=== PATIENT | female | born 1985 | race African-American/Black ===

== ENCOUNTER 2019-10-29 15:10 | Emergency (ER) | payer MEDICAID ==
[~2019-10-29] VITALS: Ht 167.6 cm; Wt 116.6 kg
--- NOTE | 2019-10-29 15:10 | NUR ---
PT BIBRA 89 FROM HOME C/O R THUMB LACERATION. PT IS AAOX4, NOT IN RESPIRATORY DISTRESS, V/S STABLE, KEPT RESTED AND COMFORTABLE. WILL CONTINUE TO MONITOR.
[2019-10-29] MEDS ORDERED: TDAP [DIPH/PERTUSSIS/TET] 0.5 ML VIAL IM ONE ×2 (15:56→16:00)
--- NOTE | 2019-10-29 16:00 | NUR ---
FISH NET MAKER AT BEDSIDE FOR XRAY.
--- NOTE | 2019-10-29 16:45 | NUR ---
SUTURING DONE BY .
--- NOTE | 2019-10-29 16:53 | NUR ---
WOUND DRESSING DONE BY CLICKER OPERATOR.
[2019-10-29 16:54] VITALS: BP 125/59
--- NOTE | 2019-10-29 16:54 | NUR ---
Patient discharged to home in stable condition. Written and verbal after care instructions given. Patient verbalizes understanding of instruction.
== END 2019-10-29 16:54 | disposition home or self-care (01) ==
LOC: ER 15:16
DX: S61.011A Laceration without foreign body of right thumb without damage to nail, initial encounter (principal); Z88.6 Allergy status to analgesic agent; W26.0XXA Contact with knife, initial encounter; Y93.89 Activity, other specified; Y92.090 Kitchen in other non-institutional residence as the place of occurrence of the external cause; Y99.8 Other external cause status
CPT/HCPCS: 73140-TC; 90715